=== PATIENT | male | born 1995 | race Caucasian/White ===

== ENCOUNTER 2020-07-13 19:45 | Emergency (ER) | payer OTHER, SELFPAY ==
--- NOTE | ~2020-07-13 | XR_ITS ---
EXAMINATION: XR chest 2V DATE: 07/13/2020 20:00 INDICATION: Shortness of breath and cough. TECHNIQUE: Frontal and lateral views of the chest were obtained. COMPARISON: None. FINDINGS: There are mild airspace opacities in the mid and lower lung zones. No pleural effusion or p neumothorax. The heart size is normal. IMPRESSION: 1. Mild airspace opacities in the mid and lower lung zones, consistent with pneumonia. Reviewed, dictated and finalized at location A. EXTRUDER IMPRESSION: 1. Mild airspace opacities in the mid and lower lung zones, consistent with pne umonia.
[2020-07-13 19:55] VITALS: BP 127/61; PULSE 100; RESP 22; TEMP 38; O2SAT 97
--- NOTE | 2020-07-13 19:59 | ED.URI ---
HPI - URI/Sore Throat General Chief Complaint: Upper Respiratory Infection Stated Complaint: CP/SOB/Headache/Body Aches Time Seen by Provider: 07/13/20 19:59 Source: patient Mode of arrival: ambulatory Limitations: no limitations History of Present Illness HPI Narrative: 24-year-old male presents to the [facility] with complaints of cough, shortness of breath for the last 5 days. 3 weeks ago had a positive exposure to Covid. Patient reports chest wall pain with only with deep breathing. Denies chest pain. States he has had fevers intermittently since yesterday. Patient is febrile here in clinic. Reports taking medication, Excedrin prior to arrival. Denies any nausea, vomiting, diarrhea or abdominal pain. Related Data Allergies Allergy/AdvReac Type Severity Reaction Status Date / Time No Known Allergies Allergy Verified 07/13/20 20:10 Review of Systems Review of Systems: Narrative: CONSTITUTIONAL: Reports fever, chills, or sweats. EYES: Denies visual changes, redness, or discharge. ENT: Denies rhinorrhea, congestion, sore throat, or otalgia. CARDIOVASCULAR: Denies chest pain, palpitations, or edema. Does report chest wall pain only with deep breathing RESPIRATORY: Reports cough and intermittent dyspnea. GASTROINTESTINAL: Denies abdominal pain, nausea, vomiting, or diarrhea. SKIN: Denies rash or itching. MUSCULOSKELETAL: Denies back pain, joint pain, or myalgia. NEUROLOGIC: Denies headache, numbness, or weakness. PSYCHIATRIC: Denies anxiety or depression. All other systems reviewed are negative, except as documented in HPI. PMFSH Comments At the time of my signature, I reviewed and agree with the nursing past medical, surgical, social, and family history. There is no relevant family history pertinent to the patient complaint. Exam Narrative: Exam Narrative: GENERAL: This is a well-nourished, well-developed patient. Obese. Mildly ill with no acute distress HEAD: normocephalic, atraumatic. EYES: PERRL. Sclera clear/white. Vision is grossly intact. EARS: External ears normal, auditory canals clear and without drainage, TMs without perforation. Hearing grossly intact. Clear fluid levels noted bilateral TMs. No erythema NOSE: External nose normal. nares without redness, clear rhinorrhea. THROAT: Mucous membranes moist, posterior pharynx clear. NECK: Neck supple, non-tender without lymphadenopathy, masses or thyromegaly. CARDIOVASCULAR: Regular rate and rhythm without murmurs, gallops, or rubs. RESPIRATORY: Clear to auscultation. Breath sounds equal bilaterally. No wheezes, rales, or rhonchi. SKIN: warm, intact with no suspicious lesions or rash, good texture and turgor. NEURO: awake, alert, and oriented to person, place and time. There were no obvious focal neurologic abnormalities. EXTREMITIES: No clubbing, cyanosis, or edema. No joint tenderness. BACK: Nontender without deformity. Course Course Emergency Course: Data rapid Covid test, negative. Would have like to do a flu and PCR Covid however patient declined due to cost. Vital Signs Vital signs: Vital Signs Temperature 100.4 F H 07/13/20 19:55 Pulse Rate 100 07/13/20 19:55 Respiratory Rate 22 H 07/13/20 19:55 Blood Pressure 127/61 07/13/20 19:55 Pulse Oximetry 97 07/13/20 19:55 Temperature 100.4 F H 07/13/20 19:55 Pulse Rate 100 07/13/20 19:55 Respiratory Rate 22 H 07/13/20 19:55 Blood Pressure 127/61 07/13/20 19:55 Pulse Oximetry 97 07/13/20 19:55 MDM - URI/Sore Throat Differential Diagnosis Differential diagnosis: Likely upper respiratory infection, viral infection, bronchitis, influenza and other (Pneumonia) Lab Data Attestation: I reviewed the patient's lab results. Labs: Lab Results 07/13/20 Range/Units 20:05 POC SARS CoV-2 Ag Negative (Negative) Reviewed Imaging Data Radiologist's impression: Impressions Chest X-Ray 07/13/20 20:04 IMPRESSION: 1. Mild airspace opacities in the mid and lower lung z
== END 2020-07-13 20:20 | disposition home or self-care (01) ==
PROVIDERS: Emergency Provider Nurse Practitioner
DX: J18.9 Pneumonia, unspecified organism (principal)
CPT/HCPCS: 71046; 87426; 99213; C9803; G0463